=== PATIENT | female | born 1975 | race Hispanic/Latino ===

== ENCOUNTER 2020-08-04 08:12 | Emergency (ER) | payer BC ==
[2020-08-04 09:17] LABS: BASOPHILS % (AUTO) 0.7 % (0.0-5.0); EOSINOPHILS % (AUTO) 3.8 % (0.0-8.0); LYMPHOCYTES % (AUTO) 26.9 % (21.0-51.0); MEAN CORPUSCULAR HEMOGLOBIN 31.3 pg (27.0-33.0); MEAN CORPUSCULAR HGB CONC 33.3 g/dL (32.0-36.0); MEAN CORPUSCULAR VOLUME 94.1 fL (79-99); NEUTROPHILS % (AUTO) 62.3 % (40.0-77.0); PLATELET COUNT (AUTO) 205 K/uL (130-400); RED BLOOD CELL COUNT(AUTO) 4.25 MIL/uL (4.00-5.50); RED CELL DISTRIBUTION WIDTH 12.4 % (11.0-15.5)
[2020-08-04 09:24] LABS: APPEARANCE,URINE Clear (CLEAR); BILIRUBIN,URINE Negative (NEGATIVE); COLOR,URINE Yellow (YELLOW); GLUCOSE, URINE (UA) Negative (NEGATIVE); KETONES,URINE Negative (NEGATIVE); LEUKOCYTE ESTERASE ,URINE Negative (NEGATIVE); NITRATE,URINE Negative (NEGATIVE); OCCULT BLOOD,URINE Negative (NEGATIVE); PROTEIN,URINE Negative (NEGATIVE); UROBILINOGEN,URINE 0.2 mg/dL (0.2-1.0)
[2020-08-04 09:26] LABS: HCG,QUAL RESULT NEGATIVE (NEGATIVE)
[2020-08-04 09:27] LABS: CREATININE 0.8 mg/dL (0.5-1.5); POTASSIUM 4.1 mmol/L (3.5-5.1)
[2020-08-04 09:32] LABS: ALBUMIN 4.1 g/dL (3.5-5.0); BILIRUBIN,TOTAL 0.5 mg/dL (0.2-1.0); TOTAL PROTEIN, SERUM 7.3 g/dL (6.0-8.3)
== END 2020-08-04 11:06 | disposition home or self-care (01) ==
LOC: EDH 08:12
DX: K59.00 Constipation, unspecified (principal); Z98.890 Other specified postprocedural states
CPT/HCPCS: 36415; 74018; 76856; 80053; 81003; 81025; 85025

== ENCOUNTER 2024-11-03 14:50 | Emergency (ER) | payer BC ==
[~2024-11-03] VITALS: Ht 160 cm; Wt 68.0 kg
[2024-11-03] MEDS: HYDROcodone/APAP 5/325 1 TAB TABLET PO ONE (15:30)
--- NOTE | 2024-11-03 16:48 | HMCIMG ---
SHOULDER COMP 2+VWS LT HISTORY: Status post fall COMPARISON: None TECHNIQUE: 2 images of left shoulder were obtained. FINDINGS: Left mid clavicular fracture with displacement is seen. No dislocation is seen. Fracture fragment is seen at the fracture site. IMPRESSION: 1. Findings as described above.
--- NOTE | 2024-11-03 16:48 | HMCIMG ---
CHEST 1VW HISTORY: Pain, status post fall COMPARISON: None FINDINGS: A frontal projection of the chest was obtained. No acute pulmonary infiltrates is seen. The heart is normal in size. Prominent interstitial markings are seen. Aortic calcifications are seen. IMPRESSION: 1. No acute pulmonary infiltrate is seen.
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
[2024-11-03] MEDS ORDERED: HYDR-4060 PO (20:39)
[2024-11-03] MEDS: HYDROcodone/APAP 5/325 1 TAB TABLET ONE (20:39)
[2024-11-03 20:48] VITALS: BP 127/62; PULSE 78; RESP 18; TEMP 98.8; O2SAT 98
== END 2024-11-03 20:51 | disposition home or self-care (01) ==
LOC: EDH 14:50
DX: S42.012A Anterior displaced fracture of sternal end of left clavicle, initial encounter for closed fracture (principal); E03.9 Hypothyroidism, unspecified; V29.99XA Rider (driver) (passenger) of other motorcycle injured in unspecified traffic accident, initial encounter; Y93.89 Activity, other specified; Y92.488 Other paved roadways as the place of occurrence of the external cause; Y99.8 Other external cause status
CPT/HCPCS: 71045; 73030; 99283